=== PATIENT | male | born 1985 | race Caucasian/White ===

== ENCOUNTER 2017-05-17 18:09 | Inpatient (IN) | payer BC ==
[2017-05-17] VITALS (10 sets, daily range): BP systolic 117–143; BP diastolic 56–81; PULSE 81–126; RESP 18–22; TEMP 98.6–103.1; O2SAT 96–98
[~2017-05-17] VITALS: Ht 177.8 cm; Wt 82.6 kg
[~2017-05-17 18:09] MED LIST: FOLI1TAB PO; [UNRECOGNIZED DRUG - OTHER] PO
--- NOTE | 2017-05-17 19:20 | PD ---
HPI Chief Complaint: Cold / Flu Symptoms Time Seen by Provider: 19:09 Travel History International Travel<30 days: No Contact w/Intl Traveler<30days: No Traveled to known affect area: No History of Present Illness HPI The patient is a 31-year-old male that complains of a midline frontal headache, nausea and vomiting and mild cough since yesterday. The patient has a history of thalassemia and chronic anemia and is followed by Dr. Coles. He does not know at what hemoglobin he gets transfused. He does have a fever at home-102. He cannot remember the last time he had a chest x-ray, he states it is years. PFSH Past Medical History Blood Disorders: Yes (BETA THALASSEMIA MAJOR) Cancer: No Cardiovascular Problems: No Endocrine: No Genitourinary: No Immune Disorder: No Implanted Vascular Access Dvce: No Musculoskeletal: No Neurologic: No Psychiatric: No Reproductive: No Respiratory: No Influenza Vaccination: No Past Surgical History Cholecystectomy: Yes Other Surgery: Yes (SPLEENECTOMY) Social History Alcohol Use: No Tobacco Use: No Substance Use: No Allergies-Medications (Allergen,Severity, Reaction): Coded Allergies: latex (Unverified Allergy, Mild, ITCH, 05/17/17) POWDER ON THE GLOVES IS THE ALLERGY PER PT Reported Meds & Prescriptions Reported Meds & Active Scripts Active Reported [Exjede] 2,500 Mg PO HS Review of Systems Except as stated in HPI: all other systems reviewed are Neg Physical Exam Narrative GENERAL: The patient is alert, oriented 3 in no respiratory distress. The vital signs show temperature 102.8 with heart rate of 126 but otherwise normal. SKIN: Focused skin assessment warm/dry. HEAD: Atraumatic. Normocephalic. EYES: Pupils equal and round. No scleral icterus. No injection or drainage. ENT: No nasal bleeding or discharge. Mucous membranes pink and moist. NECK: Trachea midline. No JVD. CARDIOVASCULAR: Regular rate and rhythm. No murmur appreciated. RESPIRATORY: No accessory muscle use. Clear to auscultation. Breath sounds equal bilaterally. GASTROINTESTINAL: Abdomen soft, non-tender, nondistended. Hepatic and splenic margins not palpable. No guarding or rebound is present. MUSCULOSKELETAL: No obvious deformities. No clubbing. No cyanosis. No edema. NEUROLOGICAL: Awake and alert. No obvious cranial nerve deficits. Motor grossly within normal limits. Normal speech. PSYCHIATRIC: Appropriate mood and affect; insight and judgment normal. Data Data Last Documented VS Vital Signs Date Time Temp Pulse Resp B/P (MAP) Pulse Ox O2 Delivery O2 Flow Rate FiO2 05/17/17 22:09 98.9 120 18 123/70 (87) 98 Room Air Orders Orders Complete Blood Count With Diff (05/17/17 19:30) Comprehensive Metabolic Panel (05/17/17 19:30) Influenzae A/B Antigen (05/17/17 19:30) Urinalysis - C+S If Indicated (05/17/17 19:30) Sodium Chloride 0.9% Flush (Ns Flush) (05/17/17 19:30) Ct Sinuses W/O Iv Contrast (05/17/17 ) Ketorolac Inj (Toradol Inj) (05/17/17 19:45) Hydromorphone Pf Inj (Dilaudid Pf Inj) (05/17/17 20:30) Ondansetron Inj (Zofran Inj) (05/17/17 20:30) Sodium Chlor 0.9% 1000 Ml Inj (Ns 1000 M (05/17/17 20:27) Acetaminophen (Tylenol) (05/17/17 20:30) Sepsis Workup Initiated (05/17/17 ) Lactic Acid Sepsis Protocol (05/17/17 20:31) Blood Culture (05/17/17 20:31) Chest, Pa & Lat (05/17/17 20:31) Blood Glucose (05/17/17 20:31) Ecg Monitoring (05/17/17 20:31) Iv Access Insert/Monitor (05/17/17 20:31) Oximetry (05/17/17 20:31) Oxygen Administration (05/17/17 20:31) Ct Thorax/ Chest Wo Iv Contras (05/17/17 ) Admit Order (Ed Use Only) (05/17/17 22:09) Labs Laboratory Tests Test 05/17/17 19:47 05/17/17 20:03 05/17/17 20:55 White Blood Count 53.9 TH/MM3 Corrected White Blood Count 23.8 TH/MM3 Red Blood Count 3.63 MIL/MM3 Hemoglobin 9.3 GM/DL Hematocrit 28.5 % Mean Corpuscular Volume 78.6 FL Mean Corpuscular Hemoglobin 25.7 PG Mean Corpuscular Hemoglobin Concent 32.7 % Red Cell Distribution Width 25.0 % Platelet Count 749 TH/MM3 Mean Platelet Volume 11.8 FL CBC Comment AUTO DIFF Differential Total Cells Counted 100 Neutrophils % (Manual) 46 % Lymphocytes % 36 % Monocytes % 15 % Eosinophils % 1 % Neutrophils # (Manual) 11.4 TH/MM3 Metamyelocytes 1 % Myelocytes 1 % Nucleated Red Blood Cells 126 /100 WBC Differential Comment FINAL DIFF MANUAL Platelet Estimate HIGH Platelet Morphology Comment NORMAL Basophilic Stippling MOD Target Cells 2+ Tear Drop Cells 1+ Ovalocytes 1+ Helmet Cells 1+ Acanthocytes 1+ Keratocytes 1+ Blood Urea Nitrogen 16 MG/DL Creatinine 0.80 MG/DL Random Glucose 95 MG/DL Total Protein 7.8 GM/DL Albumin 3.8 GM/DL Calcium Level 7.9 MG/DL Alkaline Phosphatase 80 U/L Aspartate Amino Transf (AST/SGOT) 38 U/L Alanine Aminotransferase (ALT/SGPT) 32 U/L Total Bilirubin 12.7 MG/DL Sodium Level 134 MEQ/L Potassium Level 3.7 MEQ/L Chloride Level 102 MEQ/L Carbon Dioxide Level 22.6 MEQ/L Anion Gap 9 MEQ/L Estimat Glomerular Filtration Rate 114 ML/MIN Urine Color JOCELYN Urine Turbidity SLIGHT Urine pH 5.5 Urine Specific [place] 1.011 Urine Protein NEG mg/dL Urine Glucose (UA) NEG mg/dL Urine Ketones NEG mg/dL Urine Occult Blood MOD Urine Nitrite NEG Urine Bilirubin NEG Urine Leukocyte Esterase NEG Urine RBC 0-3 /hpf Urine WBC 0-2 /hpf Urine Squamous Epithelial Cells 0-5 /hpf Microscopic Urinalysis Comment CULT NOT INDICATED Lactic Acid Level 1.6 mmol/L MDM Medical Decision Making Medical Screen Exam Complete: Yes Emergency Medical Condition: Yes Medical Record Reviewed: Yes Interpretation(s) The complete metabolic profile shows a calcium of 7.9, GOT of 38 with total bilirubin of 12.7. The sodium is 134. The CBC shows a corrected white count of 23,800 and hemoglobin is 9.3 and hematocrit is 28.5. The platelets are 749, 000. The CT sinuses show pansinusitis which is chronic with sparing of the frontal sinuses bilaterally. The chest x-ray shows either pleural base masses or loculated fluid and superior mediastinal adenopathy. CT of the thorax is suggested. Differential Diagnosis Sepsis, pneumonia, flu syndrome, bronchitis, hypoxemia Narrative Course The patient fits criteria for sepsis with his tachycardia, CBC and fever. He does have the flu syndrome. He has lung masses versus loculated pleural fluid. This is a new finding for him, he is not had a chest x-ray and many years. The patient will be admitted to Dr. Campos of the [facility]. Physician Communication Physician Communication I discussed the patient with Dr. Campos. Diagnosis Primary Impression: Sepsis Additional Impressions: Lung mass Influenza A Admitting Information Admitting Physician Requests: Admit Sukhjinder Levi MD May 17, 2017 19:20
[2017-05-17] MEDS ORDERED: SODIUM CHLORIDE 0.9% FLUSH 10 ML FLUSH IVF PRN (19:30)
[2017-05-17] MEDS ORDERED: KETOROLAC TROMETHAMINE 60 MG/2 ML (IM) VIAL IVP ONE (19:45)
[2017-05-17 20:11] LABS: CHLORIDE 102 MEQ/L (98-107); SODIUM (NA) 134 MEQ/L (136-145)
[2017-05-17 20:14] LABS: CALCIUM 7.9 MG/DL (8.5-10.1); HEMATOCRIT 28.5 % (39.0-51.0); HEMOGLOBIN 9.3 GM/DL (13.0-17.0); MEAN CELL VOLUME 78.6 FL (80.0-100.0); MEAN CORPUSCULAR HEMOGLOBIN 25.7 PG (27.0-34.0); MEAN CORPUSCULAR HGB CONC 32.7 % (32.0-36.0); MEAN PLATELET VOLUME 11.8 FL (7.0-11.0); PLATELET COUNT 749 TH/MM3 (150-450); RED BLOOD COUNT 3.63 MIL/MM3 (4.50-5.90); WHITE BLOOD COUNT 53.9 TH/MM3 (4.0-11.0)
[2017-05-17 20:15] LABS: ALBUMIN 3.8 GM/DL (3.4-5.0); BICARBONATE 22.6 MEQ/L (21.0-32.0); BLOOD UREA NITROGEN 16 MG/DL (7-18); GLUCOSE,RANDOM 95 MG/DL (74-106)
[2017-05-17 20:18] LABS: ALT (GPT) 32 U/L (12-78); AST (GOT) 38 U/L (15-37); GLOMERULAR FILTRATION RATE 114 ML/MIN (>89)
[2017-05-17 20:20] LABS: TOTAL BILIRUBIN ADULT 12.7 MG/DL (0.2-1.0); TOTAL PROTEIN 7.8 GM/DL (6.4-8.2)
[2017-05-17 20:21] LABS: ALKALINE PHOSPHATASE 80 U/L (45-117)
--- NOTE | 2017-05-17 20:21 | RADRPT ---
EXAM DATE/TIME: 05/17/2017 19:55 [facility] COMPARISON: No previous studies available for comparison. INDICATIONS : Frontal cephalgia. RADIATION DOSE: 25.00 CTDIvol (mGy) MEDICAL HISTORY : beta thalassemia major. SURGICAL HISTORY : None. ENCOUNTER: Initial ACUITY: 2 days PAIN SCORE: 7/10 LOCATION: cranial TECHNIQUE: Volumetric scanning of the paranasal sinuses was performed. Using automated exposure control and adj ustment of the mA and/or kV according to patient size, radiation dose was kept as low as reasonably a chievable to obtain optimal diagnostic quality images. DICOM format image data is available [facility] for review and comparison. FINDINGS: MAXILLARY SINUSES: There is mucosal thickening seen scattered throughout the maxillary sinuses bilaterally but most abun dant within the floors. Mucosal thickening does extend up to the ostiomeatal complexes bilaterally. N o air-fluid levels. ETHMOID SINUSES: Scattered mucosal thickening throughout the ethmoid air cells bilaterally predominantly within the an terior and middle ethmoid air cells. Posterior ethmoid air cells are clear. No air-fluid levels. SPHENOID SINUSES: Complete opacification of the sphenoid sinuses bilaterally. No bony destruction or expansion. FRONTAL SINUSES: Normal. No significant mucosal thickening or fluid. Frontal recesses are patent. No anomalous fron seth air cells. NASAL FOSSA: Normal. The nasal septum is deviated towards the left narrowing the nasal cavity on the left.. No con cee bullosa or paradoxical turbinates are identified. OTHER: Normal. Limited views of the skull base and orbits are unremarkable. CONCLUSION: 1. Chronic pansinus disease with sparing of the frontal sinuses bilaterally. 2. Septal deviation towards the left with resulting left nasal cavity obstruction. Erik Saavedra Jr., MD on May 17, 2017 at 20:16 Board Certified Radiologist. This report was verified electronically.
[2017-05-17 20:24] LABS: BLOOD, URINE MOD (NEG); GLUCOSE,URINE NEG (NEG); KETONE, URINE NEG (NEG); NITRITE,URINE NEG (NEG); PH, URINE 5.5 (5.0-8.5); URINE LEUKOCYTE ESTERASE NEG (NEG)
[2017-05-17 20:26] LABS: BILIRUBIN, URINE NEG (NEG)
[2017-05-17] MEDS ORDERED: SODIUM CHLOR 0.9% 1000 ML INJ 1,000 ML IV SCH (20:27)
[2017-05-17] MEDS ORDERED: ACETAMINOPHEN 325 MG TAB PO ONE (20:30)
[2017-05-17] MEDS ORDERED: ONDANSETRON HCL 4 MG/2 ML VIAL IVP ONE (20:30)
[2017-05-17] MEDS ORDERED: HYDROmorphone HCL PF 2 MG/ML VIAL IVS ONE (20:30)
[2017-05-17 20:31] LABS: URINE COLOR AMBER (YELLW/STRAW)
[2017-05-17 20:32] LABS: RBC, URINE 0-3 /hpf (0-3); SQUAMOUS EPITHELIAL CELL URINE 0-5 /hpf (0-5); WBC, URINE 0-2 /hpf (0-5)
[2017-05-17 21:01] LABS: CORRECTED NUCLEATED RBC 126 /100 WBC (0-0); CORRECTED WBC 23.8 TH/MM3 (4.0-11.0); LYMPHOCYTES 36 % (9-44); METAMYELOCYTES 1 % (0-1); MONOCYTES 15 % (0-8); MYELOCYTES 1 % (0-0); NEUTROPHIL # MANUAL DIFF 11.4 TH/MM3 (1.8-7.7); NUCLEATED RED BLOOD CELL 126 (0-0); POLYS (SEG NEUTROPHILS) 46 % (16-70)
[2017-05-17 21:02] LABS: OVALOCYTES 1+ (NORMAL); TEARDROP RBCS 1+ (NORMAL)
[2017-05-17 21:03] LABS: ACANTHOCYTES 1+ (NORMAL); HELMET CELLS 1+ (NORMAL); KERATOCYTES 1+ (NORMAL); TARGET CELLS 2+ (NORMAL)
--- NOTE | 2017-05-17 21:08 | RADRPT ---
EXAM DATE/TIME: 05/17/2017 20:43 [facility] COMPARISON: No previous studies available for comparison. INDICATIONS : Cough and congestion. MEDICAL HISTORY : beta thalassemia major SURGICAL HISTORY : None. ENCOUNTER: Initial ACUITY: 2 days PAIN SCORE: 0/10 LOCATION: chest FINDINGS: Large lobulated densities seen involving the peripheral aspects of the hemithoraces bilaterally but m ost pronounced posteriorly. This either relates to soft tissue masses or loculated fluid. The heart i s normal in size. Lung parenchyma is clear. Superior mediastinal densities concerning for adenopathy. CONCLUSION: 1. Either pleural base masses or loculated fluid. I tend to favor the former. 2. Superior mediastinal adenopathy. 3. CT of the thorax is suggested to further evaluate this. Erik Saavedra Jr., MD on May 17, 2017 at 21:04 Board Certified Radiologist. This report was verified electronically.
[2017-05-17] MEDS ORDERED: OSELTAMIVIR PHOSPHATE 75 MG CAP PO ONE (22:15)
[2017-05-17] MEDS ORDERED: NALOXONE HCL 0.4 MG/ML AMP IV PUSH PRN (22:15)
--- NOTE | 2017-05-17 22:33 | RADRPT ---
EXAM DATE/TIME: 05/17/2017 22:11 [facility] COMPARISON: CHEST PA & LAT, May 17, 2017, 20:43. INDICATIONS : Cough, congestion, abnormal chest radiograph. RADIATION DOSE: 8.94 CTDIvol (mGy) MEDICAL HISTORY : beta thalassemia major SURGICAL HISTORY : None. ENCOUNTER: Initial ACUITY: 2 days PAIN SCALE: 5/10 LOCATION: chest TECHNIQUE: Volumetric scanning of the chest was performed. Using automated exposure control and adjustment of t he mA and/or kV according to patient size, radiation dose was kept as low as reasonably achievable to obtain optimal diagnostic quality images. DICOM format image data is available electronically for r eview and comparison. Follow-up recommendations for detected pulmonary nodules are based at a minimum on nodule size and pa tient risk factors according to Fleischner Society Guidelines. FINDINGS: Multiple pleural-based masses are seen throughout the hemithoraces bilaterally. These are smoothly ma rginated and well circumscribed. These are most pronounced within the posterior mediastinum paralleli ng the spine. Gynecomastia is also noted bilaterally. No superior mediastinal adenopathy appreciated. The final image of the study extends through the upper abdomen and there is the suggestion of retrop eritoneal adenopathy. Small bilateral pleural effusions with associated passive atelectasis. Tiny per icardial effusion. Sclerotic changes are seen involving the posterior left eighth and ninth ribs. I s uspect this relates to prior trauma. Similar findings are seen involving the right lateral fourth and fifth ribs. CONCLUSION: Multiple pleural-based masses, gynecomastia, and suspected retroperitoneal adenopathy within the abdo men. 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 Erik Saavedra Jr., MD on May 17, 2017 at 22:20 Board Certified Radiologist. This report was verified electronically.
[2017-05-17] MEDS ORDERED: ONDANSETRON HCL 4 MG/2 ML VIAL IV ONE (22:45)
[2017-05-17] MEDS ORDERED: HYDROmorphone HCL PF 1 MG/ML VIAL IVP ONE (22:45)
[2017-05-18] MEDS ORDERED: ACETAMINOPHEN 325 MG TAB PO PRN (00:30)
[2017-05-18] MEDS ORDERED: ONDANSETRON HCL 4 MG/2 ML VIAL IV PUSH PRN (00:30)
[2017-05-18] MEDS: HYDROmorphone HCL PF 1 MG/ML VIAL IV PUSH PRN ×4 (02:19→17:29)
[2017-05-18] MEDS: SODIUM CHLORIDE 0.9% FLUSH 10 ML FLUSH IV FLUSH PRN ×2 (02:20→06:16)
[2017-05-18 04:00] VITALS: BP 116/63; PULSE 109; RESP 18; TEMP 101.3; O2SAT 97
[2017-05-18 06:17] LABS: HEMATOCRIT 28.1 % (39.0-51.0); HEMOGLOBIN 9.1 GM/DL (13.0-17.0); MEAN CELL VOLUME 78.9 FL (80.0-100.0); MEAN CORPUSCULAR HEMOGLOBIN 25.6 PG (27.0-34.0); MEAN CORPUSCULAR HGB CONC 32.5 % (32.0-36.0); MEAN PLATELET VOLUME 12.1 FL (7.0-11.0); PLATELET COUNT 714 TH/MM3 (150-450); RED BLOOD COUNT 3.56 MIL/MM3 (4.50-5.90); RED CELL DISTRIBUTION WIDTH 25.8 % (11.6-17.2); WHITE BLOOD COUNT 49.4 TH/MM3 (4.0-11.0)
[2017-05-18 06:24] VITALS: TEMP 99.6
[2017-05-18 07:01] LABS: BICARBONATE 21.8 MEQ/L (21.0-32.0); CALCIUM 7.1 MG/DL (8.5-10.1); CREATININE 0.85 MG/DL (0.60-1.30)
[2017-05-18 07:30] LABS: BANDS 2 % (0-6); CORRECTED NUCLEATED RBC 157 /100 WBC (0-0); CORRECTED WBC 19.2 TH/MM3 (4.0-11.0); LYMPHOCYTES 33 % (9-44); METAMYELOCYTES 6 % (0-1); MONOCYTES 21 % (0-8); MYELOCYTES 4 % (0-0); NEUTROPHIL # MANUAL DIFF 8.4 TH/MM3 (1.8-7.7); NUCLEATED RED BLOOD CELL 157 (0-0); POLYS (SEG NEUTROPHILS) 32 % (16-70)
[2017-05-18 07:31] LABS: ACANTHOCYTES 1+ (NORMAL); KERATOCYTES 2+ (NORMAL); TARGET CELLS 2+ (NORMAL)
[2017-05-18 07:50] VITALS: BP 110/53; PULSE 105; RESP 20; TEMP 100.1; O2SAT 95
[2017-05-18 07:51] LABS: CALCIUM-PROTEIN CORRECTED 7.2 MG/DL (8.5-10.1)
[2017-05-18] MEDS: OSELTAMIVIR PHOSPHATE 75 MG CAP PO SCH ×2 (09:32→20:03)
[2017-05-18] MEDS: SODIUM CHLORIDE 0.9% FLUSH 10 ML FLUSH IV FLUSH SCH ×2 (09:33→19:57)
[2017-05-18 11:50] VITALS: BP 122/56; PULSE 107; RESP 20; TEMP 99.1; O2SAT 95
[2017-05-18] MEDS ORDERED: ALPRAZolam 0.5 MG TAB PO ONE (14:00)
[2017-05-18 14:32] LABS: HEMATOCRIT 28.3 % (39.0-51.0); HEMOGLOBIN 9.1 GM/DL (13.0-17.0); MEAN CELL VOLUME 77.5 FL (80.0-100.0); MEAN CORPUSCULAR HEMOGLOBIN 24.9 PG (27.0-34.0); MEAN CORPUSCULAR HGB CONC 32.1 % (32.0-36.0); MEAN PLATELET VOLUME 11.1 FL (7.0-11.0); PLATELET COUNT 703 TH/MM3 (150-450); RED BLOOD COUNT 3.65 MIL/MM3 (4.50-5.90); RED CELL DISTRIBUTION WIDTH 24.4 % (11.6-17.2); WHITE BLOOD COUNT 42.8 TH/MM3 (4.0-11.0)
[2017-05-18] MEDS: PSEUDOEPHEDRINE HCL 30 MG TAB PO PRN (14:46)
[2017-05-18] MEDS: SODIUM CHLOR 0.9% 1000 ML INJ 1,000 ML IV SCH (14:47)
--- NOTE | 2017-05-18 14:50 | HHI.HP ---
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 He does come to the emergency room complaining of headache with associated nausea vomiting and subjective fever. He does have a flu studies which are positive. Here he is afebrile and has a leukocytosis. Patient has chronic leukocytosis which has been described by his coil strapper as scheduled leukocytosis due to nucleated red blood cells seen on his peripheral smear in previous encounters. He has also been tachycardic and appears dehydrated on exam. He is jaundiced grossly and his bilirubin is 12.7. He is chronically jaundiced and has a history also splenectomy. Patient has multiple masses and evidence of lymphadenopathy on his CT of the thorax. Patient's been admitted to the hospital due to these symptoms. His headache has been somewhat relieved with Dilaudid. His fever is improved. Past Family Social History Allergies: Coded Allergies: latex (Unverified Allergy, Mild, ITCH, 05/17/17) POWDER ON THE GLOVES IS THE ALLERGY PER PT Physical Exam Vital Signs Vital Signs Date Time Temp Pulse Resp B/P (MAP) Pulse Ox O2 Delivery O2 Flow Rate FiO2 05/18/17 07:50 100.1 105 20 110/53 (72) 95 05/18/17 06:24 99.6 05/18/17 04:00 101.3 109 18 116/63 (80) 97 05/17/17 23:36 98.6 81 18 128/81 (97) 96 05/17/17 23:30 113 05/17/17 23:25 05/17/17 22:09 98.9 120 18 123/70 (87) 98 Room Air 05/17/17 21:32 100.5 120 18 117/63 (81) 98 Room Air 05/17/17 20:53 102.5 122 18 125/75 (92) 98 Room Air 05/17/17 20:50 97 Room Air 05/17/17 20:50 97 Room Air 05/17/17 20:23 103.1 05/17/17 20:15 125 18 125/74 (91) 97 Room Air 05/17/17 19:10 98 Room Air 05/17/17 18:36 124 18 127/56 (79) 98 05/17/17 18:14 102.8 126 22 143/64 (90) 98 Physical Exam GENERAL: This is a well-nourished, well-developed patient, in no apparent distress. SKIN: No rashes, ecchymoses or lesions. Cool and dry. HEAD: Atraumatic. Normocephalic. No temporal or scalp tenderness. EYES: Pupils equal round and reactive. Extraocular motions intact. No scleral icterus. No injection or drainage. ENT: Nose without bleeding, purulent drainage or septal hematoma. Throat without erythema, tonsillar hypertrophy or exudate. Uvula midline. Airway patent. NECK: Trachea midline. No JVD or lymphadenopathy. Supple, nontender, no meningeal signs. CARDIOVASCULAR: Regular rate and rhythm without murmurs, gallops, or rubs. RESPIRATORY: Clear to auscultation. Breath sounds equal bilaterally. No wheezes , rales, or rhonchi. GASTROINTESTINAL: Abdomen soft, non-tender, nondistended. No hepato-splenomegaly , or palpable masses. No guarding. MUSCULOSKELETAL: Extremities without clubbing, cyanosis, or edema. No joint tenderness, effusion, or edema noted. No calf tenderness. Negative Homans sign bilaterally. NEUROLOGICAL: Awake and alert. Cranial nerves II through XII intact. Motor and sensory grossly within normal limits. Five out of 5 muscle strength in all muscle groups. Normal speech. Laboratory Laboratory Tests Test 05/17/17 19:47 05/17/17 20:03 05/17/17 20:55 05/18/17 04:50 White Blood Count 53.9 49.4 Corrected White Blood Count 23.8 19.2 Red Blood Count 3.63 3.56 Hemoglobin 9.3 9.1 Hematocrit 28.5 28.1 Mean Corpuscular Volume 78.6 78.9 Mean Corpuscular Hemoglobin 25.7 25.6 Mean Corpuscular Hemoglobin Concent 32.7 32.5 Red Cell Distribution Width 25.0 25.8 Platelet Count 749 714 Mean Platelet Volume 11.8 12.1 CBC Comment AUTO DIFF AUTO DIFF Differential Total Cells Counted 100 100 Neutrophils % (Manual) 46 32 Lymphocytes % 36 33 Monocytes % 15 21 Eosinophils % 1 2 Neutrophils # (Manual) 11.4 8.4 Metamyelocytes 1 6 Myelocytes 1 4 Nucleated Red Blood Cells 126 157 Differential Comment FINAL DIFF MANUAL FINAL DIFF MANUAL Platelet Estimate HIGH HIGH Platelet Morphology Comment NORMAL NORMAL Basophilic Stippling MOD Target Cells 2+ 2+ Tear Drop Cells 1+ Ovalocytes 1+ Helmet Cells 1+ Acanthocytes 1+ 1+ Keratocytes 1+ 2+ Blood Urea Nitrogen 16 29 Creatinine 0.80 0.85 Random Glucose 95 87 Total Protein 7.8 7.0 Albumin 3.8 Calcium Level 7.9 7.1 Alkaline Phosphatase 80 Aspartate Amino Transf (AST/SGOT) 38 Alanine Aminotransferase (ALT/SGPT) 32 Total Bilirubin 12.7 Sodium Level 134 135 Potassium Level 3.7 3.9 Chloride Level 102 103 Carbon Dioxide Level 22.6 21.8 Anion Gap 9 10 Estimat Glomerular Filtration Rate 114 106 Urine Color JOCELYN Urine Turbidity SLIGHT Urine pH 5.5 Urine Specific [place] 1.011 Urine Protein NEG Urine Glucose (UA) NEG Urine Ketones NEG Urine Occult Blood MOD Urine Nitrite NEG Urine Bilirubin NEG Urine Leukocyte Esterase NEG Urine RBC 0-3 Urine WBC 0-2 Urine Squamous Epithelial Cells 0-5 Microscopic Urinalysis Comment CULT NOT INDICATED Lactic Acid Level 1.6 Band Neutrophils % 2 Protein Corrected Calcium 7.2 Test 05/18/17 14:21 White Blood Count 42.8 Red Blood Count 3.65 Hemoglobin 9.1 Hematocrit 28.3 Mean Corpuscular Volume 77.5 Mean Corpuscular Hemoglobin 24.9 Mean Corpuscular Hemoglobin Concent 32.1 Red Cell Distribution Width 24.4 Platelet Count 703 Mean Platelet Volume 11.1 CBC Comment AUTO DIFF Sodium Level 135 Potassium Level 3.6 Chloride Level 104 Date/Time Source Procedure Growth Status 05/17/17 20:55 Blood Peripheral Aerobic Blood Culture - Preliminary NO GROWTH IN 1 DAY Resulted 05/17/17 20:55 Blood Peripheral Anaerobic Blood Culture - Preliminary NO GROWTH IN 1 DAY Resulted 05/17/17 19:47 Nasal Washing Influenza Types A,B Antigen (VERA) - Final Positive For Flu A Antigen Complete Result Diagram: 05/18/17 1421 05/18/17 1421 Septic Shock Reassessment Septic shock perfusion: reassessment completed Caprini VTE Risk Assessment Caprini VTE Risk Assessment: Mod/High Risk (score >= 2) Caprini Risk Assessment Model Point Value = 1 Point Value = 2 Point Value = 3 Point Value = 5 Age 41-60 Minor surgery BMI > 25 kg/m2 Swollen legs Varicose veins or History of unexplained or recurrent spontaneous Oral contraceptives or hormone replacement Sepsis (< 1 month) Serious lung disease, including pneumonia (< 1 month) Abnormal pulmonary function Acute myocardial infarction Congestive heart failure (< 1 month) History of inflammatory bowel disease Medical patient at bed rest Age 61-74 Arthroscopic surgery Major open surgery (> 45 min) Laparoscopic surgery (> 45 min) Malignancy Confined to bed (> 72 hours) Immobilizing plaster cast Central venous access Age >= 75 History of VTE Family history of VTE Factor V Leiden Prothrombin [id number] Lupus anticoagulant Anticardiolipin antibodies Elevated serum homocysteine Heparin-induced thrombocytopenia Other congenital or acquired thrombophilia Stroke (< 1 month) Elective arthroplasty Hip, pelvis, or leg fracture Acute spinal cord injury (< 1 month) Prophylaxis Regimen Total Risk Factor Score Risk Level Prophylaxis Regimen 0-1 Low Early ambulation 2 Moderate Order ONE of the following: *Sequential Compression Device (SCD) *Heparin 5000 units SQ BID 3-4 Higher Order ONE of the following medications: *Heparin 5000 units SQ TID *Enoxaparin/Lovenox 40 mg SQ daily (WT < 150 kg, CrCl > 30 mL/min) *Enoxaparin/Lovenox 30 mg SQ daily (WT < 150 kg, CrCl > 10-29 mL/min) *Enoxaparin/Lovenox 30 mg SQ BID (WT < 150 kg, CrCl > 30 mL/min) AND/OR *Sequential Compression Device (SCD) 5 or more Highest Order ONE of the following medications: *Heparin 5000 units SQ TID (Preferred with Epidurals) *Enoxaparin/Lovenox 40 mg SQ daily (WT < 150 kg, CrCl > 30 mL/min) *Enoxaparin/Lovenox 30 mg SQ daily (WT < 150 kg, CrCl > 10-29 mL/min) *Enoxaparin/Lovenox 30 mg SQ BID (WT < 150 kg, CrCl > 30 mL/min) AND *Sequential Compression Device (SCD) Assessment and Plan Problem List: (1) Beta thalassemia major ICD Code: D56.1 - Beta thalassemia Plan: Patient with known history of this in follow-up with outpatient rheumatology services Patient apparently with a history of pseudomonal leukocytosis and his white cell count actually has improved. He currently is on blood transfusion every few weeks with folic acid. 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 We will follow-up with hematology. It is confusing in the setting of the active viral illness whether this is truly some form of viral response versus a primary hematological issue (4) Elevated LFTs ICD Code: R79.89 - Other specified abnormal findings of blood chemistry Plan: Patient has chronic hepatitis C and chronically elevated LFTs Continue follow-up clinically He is chronically jaundiced (5) Headache ICD Code: R51 - Headache Plan: Continue Sudafed, will avoid Tylenol and add an NSAID Improved with IV Dilaudid Physician Certification 2 Midnight Certification Type: Admission for Inpatient Services Order for Inpatient Services The services are ordered in accordance with Medicare regulations or non- Medicare payer requirements, as applicable. In the case of services not specified as inpatient-only, they are appropriately provided as inpatient services in accordance with the 2-midnight benchmark. Estimated LOS (days): 3 3 days is the estimated time the patient will need to remain in the hospital, assuming treatment plan goals are met and no additional complications. Post-Hospital Plan: Betariz Ross MD May 18, 2017 14:50
[2017-05-18] MEDS ORDERED: CALCIUM GLUCONATE INJ 1 GM in DEXTROSE 5% IN WATER 100ML INJ 100 ML IV ONE ×2 (15:00)
[2017-05-18] MEDS ORDERED: IBUPROFEN 800 MG TAB PO ONE (15:00)
[2017-05-18 15:09] LABS: ACANTHOCYTES 1+ (NORMAL); BANDS 2 % (0-6); BASOPHILS 1 % (0-2); CORRECTED NUCLEATED RBC 142 /100 WBC (0-0); CORRECTED WBC 17.7 TH/MM3 (4.0-11.0); LYMPHOCYTES 31 % (9-44); METAMYELOCYTES 3 % (0-1); MONOCYTES 26 % (0-8); MYELOCYTES 2 % (0-0); NEUTROPHIL # MANUAL DIFF 7.3 TH/MM3 (1.8-7.7); NUCLEATED RED BLOOD CELL 142 (0-0); POLYS (SEG NEUTROPHILS) 34 % (16-70); TARGET CELLS 2+ (NORMAL)
[2017-05-18 15:10] LABS: KERATOCYTES 2+ (NORMAL); OVALOCYTES 1+ (NORMAL)
[2017-05-18 15:24] LABS: ALBUMIN 3.5 GM/DL (3.4-5.0); BICARBONATE 21.9 MEQ/L (21.0-32.0); CALCIUM 7.2 MG/DL (8.5-10.1); CREATININE 0.82 MG/DL (0.60-1.30); DIRECT BILIRUBIN ADULT 1.3 MG/DL (0.0-0.2); TOTAL BILIRUBIN ADULT 11.6 MG/DL (0.2-1.0); TOTAL PROTEIN 7.1 GM/DL (6.4-8.2)
[2017-05-18 15:29] LABS: CALCIUM-PROTEIN CORRECTED 7.2 MG/DL (8.5-10.1)
[2017-05-18] MEDS ORDERED: DIATRIZOATE MEGLUM/DIATRIZOATE SOD 9 ML CUP PO ONE (15:30)
[2017-05-18] MEDS ORDERED: ENOXAPARIN SODIUM 40 MG/0.4 ML SYRINGE SQ SCH (16:00)
[2017-05-18 17:20] VITALS: BP 123/58; PULSE 114; RESP 20; TEMP 99; O2SAT 97
[2017-05-18] MEDS ORDERED: IOHEXOL 350 MG/ML 10 ML VIAL (for RAD DIAG) IVCONTRAST ONE (18:28)
[2017-05-18 20:00] VITALS: BP 117/56; PULSE 96; RESP 17; TEMP 98.1; O2SAT 96
--- NOTE | 2017-05-18 21:24 | RADRPT ---
EXAM DATE/TIME: 05/18/2017 18:21 [facility] COMPARISON: CT THORAX W/O CONTRAST, May 17, 2017, 22:11. INDICATIONS : Evaluate for mass. Abnormal CT thorax. WBC = 42.8 IV CONTRAST: 85 cc Omnipaque 350 (iohexol) IV ORAL CONTRAST: Prescribed oral contrast ingested. RADIATION DOSE: 10.97 CTDIvol (mGy) MEDICAL HISTORY : None SURGICAL HISTORY : Splenectomy. Cholecystectomy. ENCOUNTER: Initial ACUITY: 1 day PAIN SCALE: 0/10 LOCATION: Abdomen. TECHNIQUE: Volumetric scanning of the abdomen and pelvis was performed. Using automated exposure control and ad justment of the mA and/or kV according to patient size, radiation dose was kept as low as reasonably achievable to obtain optimal diagnostic quality images. DICOM format image data is available electro nically for review and comparison. FINDINGS: LOWER LUNGS: See the CT of the thorax previously described. LIVER: Homogeneous density without lesion. There is no dilation of the biliary tree. Prior cholecystectomy. SPLEEN: Surgically absent. PANCREAS: Within normal limits. KIDNEYS: Normal in size and shape. There is no mass, stone or hydronephrosis. ADRENAL GLANDS: Within normal limits. VASCULAR: There is no aortic aneurysm. BOWEL/MESENTERY: The stomach, small bowel, and colon demonstrate no acute abnormality. There is no free intraperitone al air or fluid. ABDOMINAL WALL: Within normal limits. RETROPERITONEUM: There are a few scattered enlarged lymph nodes observed. At the level of celiac there are several lym ph nodes that are enlarged the largest measuring 2.3 x 1.4 cm. Within the retroperitoneum more inferi soniya there is a large lymph node just posterior to the right common iliac vein measuring 3.6 x 1.4 cm . There is a soft tissue mass anterior to the sacrum felt to be an enlarged lymph node. This measures 5.6 x 3.5 cm. BLADDER: No wall thickening or mass. REPRODUCTIVE: Within normal limits. INGUINAL: There is no lymphadenopathy or hernia. MUSCULOSKELETAL: Within normal limits for patient age. CONCLUSION: 1. Retroperitoneal adenopathy as detailed above. See discussion under the CT of the thorax. 2. Prior splenectomy. Erik Saavedra Jr., MD on May 18, 2017 at 21:18 Board Certified Radiologist. This report was verified electronically.
--- NOTE | 2017-05-18 21:59 | MB ---
cc: ASTON VALENCIA MD DATE OF CONSULTATION 05/18/[address] Prather REASON FOR CONSULTATION Hematology was consulted to render opinion regarding patient with thalassemia major admitted with flu and normal CAT scan. HISTORY OF PRESENT ILLNESS The patient is a very pleasant 31-year-old male of descent. He is currently under the care of Dr. Coles for management of beta thalassemia major. The patient has been getting a blood transfusion about once every 5-6 weeks. His last transfusion was a week ago. He was doing well until Monday when he started having sore throat. On Monday, he started having nausea and vomiting. He later developed a frontal headache. He described a throbbing sensation. His symptoms progressively got worse and he came to the emergency room. He was found to have fever with temperature 103.1. His flu test was positive. He was found to be tachycardiac and dehydrated. He was admitted for further management. He is feeling a little bit better. He still has sore throat. He still coughs up greenish phlegm intermittently. He denies any chest pressure or palpitations. He has no shortness of breath. He denies any diarrhea. He denies any GI bleeding. Denies dysuria or hematuria. He had CT of sinus and chest done during this admission. He is worried about the CT finding. PAST MEDICAL HISTORY 1. 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 4. Thrombocytosis 5. Hepatitis C. PAST SURGICAL HISTORY 1. 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 Cholecystectomy. FAMILY HISTORY One sister is alive. He has no children. SOCIAL HISTORY Denies tobacco or alcohol use. He is a practicing dentist. ALLERGIES Latex was listed on his chart, but the patient denied he has a latex allergy. MEDICATIONS Outpatient 1. Exjade. 2. Folic acid 3. Currently receiving Lovenox. 4. Tamiflu. REVIEW OF SYSTEMS CONSTITUTIONAL: As above. EYES: Negative. ENT: As above. CARDIOVASCULAR: Denies chest pressure, palpitation RESPIRATORY: Denies shortness of breath. GI: As above. : Negative. MUSCULOSKELETAL: Negative. HEMATOLOGY: As above. ENDOCRINE: Negative DERMATOLOGY: Negative. PSYCHIATRIC: Negative. NEUROLOGIC: Negative. PHYSICAL EXAMINATION VITAL SIGNS: Temperature 99, blood pressure 123/58, pulse 114, O2 saturation 97%. GENERAL: He is alert and oriented x3. No acute distress. HEENT: Atraumatic, normocephalic. Pupils equal, round and reactive to light. Oropharynx dry mucosa. NECK: No thyromegaly. No palpable mass. BACK: No palpable cervical, clavicular, axillary or inguinal lymph node CARDIOVASCULAR: Regular S1, S2, tachycardiac. LUNGS: Clear to auscultation bilaterally. ABDOMEN: Soft, nontender. I Could not palpate liver or spleen. EXTREMITIES: No cyanosis, clubbing or edema. BACK: No paravertebral tenderness. SKIN: No rash or petechiae. NEUROLOGIC: Nonfocal. LABORATORY DATA WBC 42.8, hemoglobin 9.1, platelet count of 703, creatinine 0.82, total bilirubin 11.6. ASSESSMENT 1. Beta thalassemia major. He has been getting a transfusion about every five to six weeks. His baseline hemoglobin is around 8-9. His last transfusion was on May 10 when he received two units of packed blood cell transfusion.. His hemoglobin is stable at 9.1. No need for transfusion at this time, but we will monitor his CBC. 2. Leukocytosis which is chronic. 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 His white blood cell count has been around 40,000-50,000 and has not changed. 3. 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 His platelet count fluctuates between 700,000 to a million which has not changed either. 4. Abnormal chest CT. CT of the chest showed multiple pleural-based masses. There are all well circumscribed and smooth bordered. They was also suspicious retroperitoneal adenopathy noted in the upper abdomen. The appearance of these nodules likely is not malignant. This could be extramedullary hematopoiesis. He is awaiting a CT abdomen and pelvis for further evaluation. This could be followed as an outpatient with Dr. Coles once he is discharged. 5. Flu. He has fever, nausea, vomiting, sore throat, headache. Flu test was positive. He is currently on Tamiflu. 6. Sinusitis. A CT of the sinus which showed ponce sinusitis but appeared to be chronic. 7. Transfusion hemosiderosis. He is on Exjade, last ferritin level was less than 1000. RECOMMENDATIONS 1. Monitor CBC. No need for transfusion at this time. We will only give him transfusion if hemoglobin is less than eight. 2. Review CT scan with the patient and his questions were answered. He is awaiting CT of abdomen and pelvis. This is not related to his current acute symptoms. This can be followed as outpatient with Dr. Coles once he is discharged. Thank you, Dr. Prather, for asking me to see this patient. MD VAISHNAVI Chawla/ /6:16 PM /9:23 PM MTDRegine
[2017-05-19] VITALS: BP 119/61; PULSE 92; RESP 18; TEMP 98; O2SAT 95
[2017-05-19] MEDS: SODIUM CHLOR 0.9% 1000 ML INJ 1,000 ML IV SCH ×2 (01:40→09:58)
[2017-05-19] MEDS: HYDROmorphone HCL PF 1 MG/ML VIAL IV PUSH PRN (03:00)
[2017-05-19] MEDS: PSEUDOEPHEDRINE HCL 30 MG TAB PO PRN (04:20)
[2017-05-19 08:00] VITALS: BP 117/56; PULSE 68; RESP 18; TEMP 96.6; O2SAT 97
[2017-05-19] MEDS: OSELTAMIVIR PHOSPHATE 75 MG CAP PO SCH (08:07)
[2017-05-19] MEDS: SODIUM CHLORIDE 0.9% FLUSH 10 ML FLUSH IV FLUSH SCH (08:08)
[2017-05-19] MEDS ORDERED: OSEL75 PO (10:10)
[2017-05-19] MEDS ORDERED: PSEU1TAB17 PO (10:10)
[2017-05-19] MEDS ORDERED: PSEU30TA82 PO (10:10)
--- NOTE | 2017-05-19 10:11 | HHI.DCPOC ---
Discharge Care Plan Diagnosis: (1) Influenza A Goals to Promote Your Health * To prevent worsening of your condition and complications * To maintain your health at the optimal level Directions to Meet Your Goals Take your medications as prescribed Follow your dietary instruction Follow activity as directed Keep your appointments as scheduled Take your immunizations and boosters as scheduled If your symptoms worsen call your PCP, if no PCP go to Urgent Care Center or Emergency Room Smoking is Dangerous to Your Health. Avoid second hand smoke Call the 24-hour hour crisis hotline for domestic abuse at Beatriz Prather MD May 19, 2017 10:11
--- NOTE | 2017-05-19 10:28 | HHI.PR ---
Subjective Remarks Patient seen and evaluated today in follow-up for influenza which is improved. No further fever. Patient feels better. Headache is improved Consultation appreciated by hematology. Abnormal findings on images likely represent extramedullary hematopoietic areas. Objective Vitals Vital Signs Date Time Temp Pulse Resp B/P (MAP) Pulse Ox O2 Delivery O2 Flow Rate FiO2 05/19/17 08:00 96.6 68 18 117/56 (76) 97 05/19/17 00:00 98.0 92 18 119/61 (80) 95 05/18/17 20:00 98.1 96 17 117/56 (76) 96 05/18/17 17:20 99.0 114 20 123/58 (79) 97 05/18/17 11:50 99.1 107 20 122/56 (78) 95 I/O 05/18/17 05/18/17 05/18/17 05/19/17 05/19/17 05/19/17 07:00 15:00 23:00 07:00 15:00 23:00 Intake Total 2146 ml 990 ml Balance 2146 ml 990 ml Intake Oral 1650 ml IV Total 496 ml 990 ml # Voids 12 3 # Bowel Movements 1 Result Diagram: 05/18/17 1421 05/18/17 1421 Objective Remarks GENERAL: This is a well-nourished, well-developed patient, jaundice CARDIOVASCULAR: Regular rate and rhythm without murmurs, gallops, or rubs. RESPIRATORY: Clear to auscultation. Breath sounds equal bilaterally. No wheezes , rales, or rhonchi. GASTROINTESTINAL: Abdomen soft, non-tender, nondistended. Normal active bowel sounds MUSCULOSKELETAL: Extremities without clubbing, cyanosis, or edema. NEURO: Alert & Oriented x4 to person, place, time, situation. Moves all ext x4 A/P Problem List: (1) Beta thalassemia major ICD Code: D56.1 - Beta thalassemia Plan: Patient with known history of this in follow-up with outpatient hematology services Patient apparently with a history of pseudomonal leukocytosis and his white cell count actually has improved. He currently is on blood transfusion every few weeks with folic acid. He takes exudate for transfusional hemosiderosis. He has chronic monocytosis due to splenectomy (2) Sepsis ICD Code: A41.9 - Sepsis, unspecified organism Status: Acute Plan: Secondary to influenza Continue supportive care, IV hydration and Tamiflu resolved (3) Lung mass ICD Code: R91.8 - Other nonspecific abnormal finding of lung field Status: Acute Plan: These are nonspecific and may or may not be acute. We will follow-up with hematology. It is confusing in the setting of the active viral illness whether this is truly some form of viral response versus a primary hematological issue (4) Elevated LFTs ICD Code: R79.89 - Other specified abnormal findings of blood chemistry Plan: Patient has been exposed to hepatitis C and has chronically elevated LFTs Continue follow-up clinically He is chronically jaundiced (5) Headache ICD Code: R51 - Headache Plan: Continue Sudafed, will avoid Tylenol and add an NSAID Discharge Planning dc home Regular diet Activity as tolerated Beatriz Prather MD May 19, 2017 10:28
== END 2017-05-19 10:59 | disposition home or self-care (01) | DRG 872 ==
LOC: PHED 18:09 → PHEDA 22:10 → PH3B 23:20 → OBSVTOIN 05-18 14:48
PROVIDERS: ADMIT Hospitalist; ATTEND Hospitalist
DX: A41.9 Sepsis, unspecified organism (principal); D56.1 Beta thalassemia; B18.2 Chronic viral hepatitis C; J10.1 Influenza due to other identified influenza virus with other respiratory manifestations; E86.0 Dehydration; R00.0 Tachycardia, unspecified; E83.19 Other disorders of iron metabolism; D72.821 Monocytosis (symptomatic); R91.8 Other nonspecific abnormal finding of lung field; R59.0 Localized enlarged lymph nodes; Z90.81 Acquired absence of spleen
CPT/HCPCS: 70486; 71046; 71250; 74177; 80048; 80053; 81001; 82248; 83605; 84155; 85007; 85027; 87040; 87804; 96361; 96374; 96375; 96376; G0378; J0610; J1170; J1650; J1885; J2405; J7030; Q9963; Q9967